=== PATIENT | female | born 1950 | race Caucasian/White ===

== ENCOUNTER 2016-07-07 08:22 | Outpatient (CLI) | payer MEDICARE, BC | END 2016-07-07 08:23 | disposition home or self-care (01) | DX: Z12.31 Encounter for screening mammogram for malignant neoplasm of breast (principal) ==

== ENCOUNTER 2016-07-07 08:23 | Outpatient (CLI) | payer MEDICARE, BC | END 2016-07-07 08:24 | disposition home or self-care (01) | DX: M81.0 Age-related osteoporosis without current pathological fracture (principal) ==

== ENCOUNTER 2017-02-20 09:41 | Outpatient (CLI) | payer MEDICARE, BC ==
[2017-02-20] MEDS ORDERED: IOPAMIDOL-300 50 ML VIAL ONE (10:05)
[2017-02-20] MEDS ORDERED: IOPAMIDOL-300 100 ML VIAL ONE (10:05)
[2017-02-20] MEDS ORDERED: IOPAMIDOL-300 100 ML VIAL IVP ONE (11:15)
[2017-02-20] MEDS ORDERED: IOPAMIDOL-300 50 ML VIAL PO ONE (11:15)
--- NOTE | 2017-02-20 16:17 | CT Report ---
DATE OF SERVICE: 02/20/2017 CT ABDOMEN AND PELVIS WITH CONTRAST: 02/20/2017 CLINICAL INDICATION: Pain, nausea, gas, bloating. TECHNIQUE: Axial CT images of the abdomen and pelvis were obtained with 100 mL Isovue 300 intravenously as well as oral contrast. FINDINGS: Limited evaluation of the lung bases demonstrates atelectasis. ABDOMEN: The liver, spleen, pancreas, kidneys and adrenal glands are unremarkable. The gallbladder is not dilated. No bowel dilatation, free gas, or free fluid is present. No abdominal adenopathy is seen. PELVIS: The appendix is seen in the right lower quadrant, and is normal in caliber. No pelvic adenopathy or free fluid is present. Osseous structures demonstrate degenerative changes. IMPRESSION: NO EVIDENT ETIOLOGY FOR PATIENT'S PAIN AND BLOATING. In accordance with CT protocol optimization, one or more of the following dose reduction techniques were utilized for this exam: automated exposure control, adjustment of mA and/or KV based on patient size, or use of iterative reconstructive technique. TD: 02/20/2017 17:14
== END 2017-02-20 09:42 | disposition home or self-care (01) ==
LOC: DI 09:41
PROVIDERS: ATTEND Physician Assistant
DX: R10.9 Unspecified abdominal pain (principal); R14.0 Abdominal distension (gaseous); R14.3 Flatulence
CPT/HCPCS: 74177; Q9967

== ENCOUNTER 2017-06-15 08:16 | Day surgery (SDC) | payer MEDICARE, BC ==
[~2017-06-15 08:16] MED LIST: BRIMONIDINE 0.2% OPHTH DROPS 5 ML ONE; BSS/LIDOCAINE/EPINEPHRINE 1 ML SYRINGE ONE; TIMOLOL 0.5% OPHTH DROPS ONE
[2017-06-15] MEDS ORDERED: KETOROLAC 0.45% OPHTH DROPS ONE (08:52)
[2017-06-15] MEDS ORDERED: PHENYLEPHRINE 2.5% OPHTH 2 ML DROPS ONE (08:52)
[2017-06-15] MEDS ORDERED: PROPARACAINE 0.5% OPHTH DROPS 15 ML ONE (08:53)
[2017-06-15] MEDS ORDERED: CYCLOPENTOLATE 1% OPHTH DROPS 2 ML ONE (08:53)
[2017-06-15] MEDS ORDERED: LACTATED RINGERS 500 ML IV ONE (09:20)
[2017-06-15] MEDS ORDERED: PHENYLEPHRINE 2.5% OPHTH 2 ML DROPS LEFTEYE ONE (10:05)
[2017-06-15] MEDS ORDERED: CYCLOPENTOLATE 1% OPHTH DROPS 2 ML LEFTEYE ONE (10:05)
[2017-06-15] MEDS ORDERED: PROPARACAINE 0.5% OPHTH DROPS 15 ML LEFTEYE ONE ×2 (10:05→10:48)
[2017-06-15] MEDS ORDERED: KETOROLAC 0.45% OPHTH DROPS LEFTEYE ONE (10:05)
[2017-06-15] MEDS ORDERED: MIDAZOLAM 2 MG/2 ML VIAL IVP ONE (10:34)
[2017-06-15] MEDS ORDERED: TIMOLOL 0.5% OPHTH DROPS OPTH ONE (10:46)
[2017-06-15] MEDS ORDERED: BRIMONIDINE 0.2% OPHTH DROPS 5 ML OPTH ONE (10:46)
[2017-06-15] MEDS ORDERED: EPINEPHrine 1 MG/ML AMP IR ONE (10:46)
[2017-06-15] MEDS ORDERED: CHONDR SULF/HYALURONATE SYRINGE IO ONE (10:46)
[2017-06-15] MEDS ORDERED: BSS/LIDOCAINE/EPINEPHRINE 1 ML SYRINGE IO ONE (10:47)
[2017-06-15] MEDS ORDERED: TRIAMCIN/MOXIFLOX/VANCO 1 ML VIAL IO ONE ×2 (10:47)
--- NOTE | 2017-06-15 11:34 | OPERATIVE REPORT ---
DATE OF SERVICE: 06/15/2017 Physician: Victoriano Law MD PREOPERATIVE DIAGNOSIS: Visually significant cataract, left eye. This was her first cataract surgery. POSTOPERATIVE DIAGNOSIS: Visually significant cataract, left eye. This was her first cataract surgery. PROCEDURE PERFORMED: Phacoemulsification with posterior chamber intraocular lens implant, left eye. SURGEON: Victoriano Law MD ANESTHESIA: Monitored anesthesia care. COMPLICATIONS: None. OPERATIVE INDICATIONS: This is a 66-year-old woman with progressive vision loss in the left eye due to 2+ nuclear sclerotic and 3+ cortical cataract. Best corrected visual acuity was 20/30 with glare to 20/60 in the left eye. Indications for surgery were overall decrease in vision, difficulty seeing words on the computer screen, difficulty reading, difficulty seeing words, closed captions or game scores on TV, difficulty seeing street signs, difficulty driving in low light or at night, difficulty driving at night because of headlights from other vehicles, difficulty with glare or bright lights in any situation, difficulty tracking a golf ball, and decreased acuity with firearms. She was consented at length concerning the risks and benefits of cataract surgery after which she expressed her desire to proceed with surgery. OPERATIVE PROCEDURE: The patient was taken to OR #3 and placed under monitored anesthesia care. A surgical time-out was conducted confirming correct patient, correct procedure and correct surgical site. She was placed under the LenSx laser and her eye docked to the laser interface. The laser performed the capsulotomy, lens softening, phaco wounds and arcuate keratotomy incisions. She was then moved to the operating microscope, given topical anesthesia, and then prepped and draped in the usual sterile fashion. Eye was entered at the 6 and 3 o'clock positions. Intracameral Shugarcaine was injected into the anterior chamber, followed by Viscoat. Capsulorrhexis flap created by the LenSx laser was removed from the anterior chamber. The nucleus was hydrodissected and phacoemulsified. The cortex was evacuated using automated infusion and aspiration. Provisc was injected in the capsular bag and a 19.5 diopter intraocular lens inserted in the bag. Approximately 1 mL mixture of triamcinolone, moxifloxacin and vancomycin was injected subconjunctivally in the superior quadrant for infection and inflammation prophylaxis. I and A was used to evacuate the viscoelastic material. Eye was inflated to physiologic pressure using balanced salt solution and found to be watertight. The patient was taken from the operating room in good condition and given postoperative instructions. TD: 06/15/2017 11:23
[2017-06-15 11:54] VITALS: BP 114/74
== END 2017-06-15 08:17 | disposition home or self-care (01) ==
LOC: SDS 08:16
PROVIDERS: ATTEND Ophthalmology
PROC: 08RK3JZ Replacement of Left Lens with Synthetic Substitute, Percutaneous Approach (ICD-10-PCS; principal; 2017-06-15 09:30)
DX: H25.812 Combined forms of age-related cataract, left eye (principal)
CPT/HCPCS: 66984; A9270; J3490; V2632

== ENCOUNTER 2017-07-11 08:46 | Outpatient (CLI) | payer MEDICARE, BC ==
[2017-07-11] MEDS ORDERED: SINCALIDE 5 MCG VIAL ONE (09:47)
[2017-07-11] MEDS ORDERED: SODIUM CHLORIDE 0.9% IV ONE (11:51)
[2017-07-11] MEDS ORDERED: SINCALIDE IV ONE (11:51)
--- NOTE | 2017-07-11 12:55 | Nuclear Medicine Report ---
EXAM: HEPATOBILIARY SCAN WITH CCK/KINEVAC ADMINISTRATION EXAM DATE: 07/11/2017 11:56 AM. CLINICAL HISTORY: EPIGASTRIC PX, HIGH LIPASE. COMPARISON: None. TECHNIQUE: Following the intravenous administration of 5.2 mCi of Tc99m Mebrofenin, a hepatobiliary s can was done centered on the liver and gallbladder in multiple sequential images and projections. Following the intravenous administration of 1.0 mcg of CCK/ Kinevac over the course of approximately 60 minutes, dynamic imaging was done and the gallbladder ejection fraction was calculated. FINDINGS: Normal extraction of tracer from the blood pool indicating normal hepatocellular function. The liver size and shape is grossly within normal limits. Appearance of tracer in the biliary tree as early as 5 minutes, within normal limits. Appearance of tracer in the gallbladder as early as 10 minutes, within normal limits, with good progr ession of filling throughout the remainder of the initial hour. Appearance of tracer in the small bowel as early as 40 minutes, within normal limits. With CCK administration, the gallbladder demonstrates an effective contraction. The gallbladder eject ion fraction is calculated to be 98%, well above the lower limit of normal of 38% for a 60-minute inj ection. The patient did not report pain after CCK administration. There is evidence of mild enteric reflux into the stomach. No significant collection of tracer remain ing in the common bile duct by the end of the study. IMPRESSION: 1. No scintigraphic evidence of acute cholecystitis. 2. Patent common bile duct. 3. Gallbladder ejection fraction is in the normal range. 4. Mild enterogastric bile reflux. [facility] Referring Provider Line: [phone] SITE ID: [id number]
== END 2017-07-11 08:47 | disposition home or self-care (01) ==
LOC: DI 08:46
PROVIDERS: ATTEND Surgery
DX: R10.13 Epigastric pain (principal); R74.8 Abnormal levels of other serum enzymes
CPT/HCPCS: 78227; J7040

== ENCOUNTER 2017-07-18 10:25 | Outpatient (CLI) | payer MEDICARE, BC ==
--- NOTE | 2017-07-19 13:31 | Mammography Report ---
Procedure Date: 07/18/2017 Accession Number: [id number] / [id number] Procedure: MGS - Screening Mammo Dig Bilat CPT Code: FULL RESULT: EXAM: Screening Mammo Dig Bilat DATE: 07/18/2017 10:42 AM CLINICAL HISTORY: 67-year-old with history of late childbearing for screening COMPARISON: 07/07/2016, 03/20/2014, 07/17/2012, 06/03/2011, 04/15/2010 TECHNIQUE: Bilateral CC, laterally exaggerated CC, MLO views were obtained. FINDINGS: The breasts demonstrate heterogeneously dense fibroglandular parenchyma bilaterally. Punctate, typically benign calcifications are present. No suspicious masses, clustered microcalcifications, or regions of architectural distortion are identified. IMPRESSION: Benign findings RECOMMENDATION: Routine annual screening unless otherwise clinically indicated. BIRADS CATEGORY 2: Benign findings STANDARD QUALIFYING STATEMENTS: 1. This examination was reviewed with the aid of Computer-Aided Detection (CAD). 2. A negative or benign imaging report should not delay biopsy if clinically suspicious findings are present. Consider surgical consultation if warrented. More than 5% of cancers are not identified by imaging. 3. Dense breasts may obscure an underlying neoplasm.
== END 2017-07-18 10:26 | disposition home or self-care (01) ==
LOC: DI.S 10:25
PROVIDERS: ATTEND Physician Assistant
DX: Z12.31 Encounter for screening mammogram for malignant neoplasm of breast (principal)
CPT/HCPCS: 77067

== ENCOUNTER 2017-08-22 08:42 | Day surgery (SDC) | payer MEDICARE, BC ==
[2017-08-22] MEDS ORDERED: LACTATED RINGERS 1,000 ML IV ONE ×3 (09:03→14:14)
[2017-08-22] MEDS ORDERED: ceFAZolin 2 GM/50 ML 2 GM/50 ML BAG IV ONE (09:04)
[2017-08-22] MEDS ORDERED: BUPIVACAINE 0.5% PF 30 ML VIAL ONE (10:35)
[2017-08-22] MEDS ORDERED: MIDAZOLAM 2 MG/2 ML VIAL IVP ONE (11:15)
[2017-08-22] MEDS ORDERED: GLYCOPYRROLATE 1 MG/5 ML VIAL IVP ONE (11:15)
[2017-08-22] MEDS ORDERED: KETOROLAC 30 MG/ML VIAL IVP ONE (11:15)
[2017-08-22] MEDS ORDERED: ePHEDrine 50 MG/ML VIAL IVP ONE (11:15)
[2017-08-22] MEDS ORDERED: ONDANSETRON 4 MG/2 ML VIAL IVP ONE (11:15)
[2017-08-22] MEDS ORDERED: fentaNYL 250 MCG/5 ML VIAL IVP ONE (11:15)
[2017-08-22] MEDS ORDERED: NEOSTIGMINE 1 MG/1 ML 10 ML MDV IVP ONE (11:15)
[2017-08-22] MEDS ORDERED: DEXAMETHASONE 4 MG/ML VIAL IVP ONE (11:15)
[2017-08-22] MEDS ORDERED: PROPOFOL 200 MG/20 ML VIAL IVP ONE (11:15)
[2017-08-22] MEDS ORDERED: ROCURONIUM 50 MG/5 ML VIAL IVP ONE (11:15)
[2017-08-22] MEDS ORDERED: BUPIVACAINE 0.5% PF 30 ML VIAL INFIL ONE ×2 (11:16)
--- NOTE | 2017-08-22 12:33 | OPERATIVE REPORT ---
Operative Report - General Procedure Date: 08/22/17 Planned Procedure: Laparoscopic cholecystectomy, possible open cholecystectomy, possible intra Pre-Op Diagnosis: Biliary dyskinesia Procedure Performed: Laparoscopic cholecystectomy and umbilical herniorrhaphy Post Op Diagnosis: Biliary dyskinesia and umbilical hernia - Procedure Note Primary Surgeon: Parvez Tyson MD Anesthesia Provider: Dayanna Grove CRNA Anesthesia Technique: General ET tube, Local (30 mL of half percent Marcaine) IV Fluids (mL): 1,200 Estimated Blood Loss (mL): 10 Complications: None. - Other Other Information/Narrative: OPERATIVE DESCRIPTION/REPORT: After verbal and written informed consent was obtained detailing the risks of infection, bleeding with all of its risks including transfusion, common bile duct injury, and the patient was brought to the operative suite and placed in the supine position on the operating room table. Monitoring devices were applied along with TEDs and pneumatic compressive stockings. Care was taken to avoid pressure points. Prophylactic antibiotics were given. An adequate level of general endotracheal anesthesia was established by Ancelmo Grove CRNA. The abdomen was then prepped with ChloraPrep and draped in a sterile fashion. A "time in" then confirmed that the patient was identified with 3 identifiers (name, date and medical record number), the history and physical was in the chart, the signed consent confirming the procedure was in the chart, the patient was in the correct position, the aforementioned prophylactic measures were in place or given, we had the correct personnel and equipment to complete the procedure and that anesthesia, surgery and nursing were given an opportunity to express any concerns. The initial incision was at the umbilicus and dissection to the linea alba was completed using blunt dissection. A small umbilical hernia was noted and this was used to get into the abdomen. The hernia itself was widened just slightly with a scalpel in order to place the port. In this location, a 12 mm blunt tipped, balloon tipped port was placed and the balloon was inflated to keep the port in position. The abdominal cavity was insufflated with carbon dioxide to steady-state pressure of 15 mmHg. Three additional 5 mm ports were placed in standard location for laparoscopic cholecystectomy (subxiphoid and 2 right subcostal) under direct vision of the 30 degree laparoscope and without incident. The patient was then placed in reverse Trendelenburg position and was rotated slightly to their left. The gallbladder fundus was grasped with an atraumatic grasper. Multiple adhesions had to be taken down by blunt and sharp dissection along with electrocautery. Eventually, we identified the infundibulum, and this was then grasped and retracted inferior and laterally. Dissection was then begun in the angle of Calot. The cystic duct and (slightly medially and posteriorly) cystic artery were clearly identified. The critical view was obtained. Two clips proximally and one clip distally were used to control both the cystic duct and cystic artery. The clips were carefully placed to avoid occluding the juncture with the common bile duct. Both the cystic duct and then the cystic artery were then transected with laparoscopic ankush. The gallbladder was then removed from its fossa in a retrograde fashion using electrocautery. With the 30 degree 5 mm scope in the subxiphoid position, the gallbladder was placed in an EndoCatch bag to be extracted through the 12 mm port site. I irrigated the right upper quadrant with a liter of warm sterile saline, and the area was aspirated dry. I inspected the gallbladder fossa and there was no bleeding or bile leak. Clips on the cystic duct and cystic artery appeared to be secure. I briefly visually explored the abdomen. There was no other evidence of overt pathology. I injected the port sites at the peritoneal, fascial, and skin levels under direct vision with 0.5% Marcaine. All ports and the EndoCatch containing the gallbladder were removed. Following gallbladder removal, the remaining carbon dioxide was expelled from the abdomen. The fascia at the umbilicus was reapproximated using 2 [id number] 0 Vicryl sutures thus repairing the umbilical hernia. The skin at each port site was approximated using a subcuticular 4-0 Monocryl. The surgical count of instruments, needles and sponges was reported as correct twice. Mastisol, Steri -Strips and sterile surgical dressings were applied. The patient was then awakened from anesthesia, extubated, and having tolerated the procedure well, was transported to the recovery room. No complications were encountered. A "time out" confirmed the operation performed, the fluids given, the estimated blood loss and anesthesia, surgery and nursing were given an opportunity to express any concerns.
[2017-08-22] MEDS ORDERED: ONDANSETRON 4 MG/2 ML VIAL ONE ×2 (12:45→13:59)
[2017-08-22] MEDS: fentaNYL 100 MCG/2 ML VIAL ONE ×2 (12:45→13:04)
[2017-08-22] MEDS ORDERED: ACETAMINOPHEN 1,000 MG/100 ML 100 ML IV ONE (13:59)
[2017-08-22] MEDS ORDERED: HYDROmorphone 0.5 MG/0.5 ML SYRINGE ONE (14:16)
[2017-08-22] MEDS ORDERED: oxyCOD/ACETAMIN 5 MG/325 MG TABLET PO ONE (14:49)
[2017-08-22 16:02] VITALS: BP 116/73
== END 2017-08-22 08:43 | disposition home or self-care (01) ==
LOC: SDS 08:42
PROVIDERS: ATTEND Surgery
PROC: 0FT44ZZ Resection of Gallbladder, Percutaneous Endoscopic Approach (ICD-10-PCS; principal; 2017-08-22 10:00)
DX: K81.1 Chronic cholecystitis (principal); K82.8 Other specified diseases of gallbladder; K42.9 Umbilical hernia without obstruction or gangrene; F17.210 Nicotine dependence, cigarettes, uncomplicated
CPT/HCPCS: 47562; A9270; J0131; J0690; J1170; J3010; J7120

== ENCOUNTER 2017-11-02 16:32 | Emergency (ER) | payer MEDICARE, BC ==
--- NOTE | 2017-11-02 17:57 | XRAY Report ---
Reason: Trauma Procedure Date: 11/02/2017 Accession Number: [id number] / [id number] Procedure: XR - Forearm RT CPT Code: FULL RESULT: EXAM: RIGHT FOREARM RADIOGRAPHY EXAM DATE: 11/02/2017 05:25 PM. CLINICAL HISTORY: Trauma.Dog bites at proximal forearm to hand. COMPARISON: None. TECHNIQUE: 2 views. FINDINGS: Bones: Normal. No fractures or bone lesions. Joints: Normal. No effusions or subluxations in the visualized wrist or elbow joints. Soft Tissues: Small proximal dorsal forearm soft tissue gas consistent with laceration. No radiopaque foreign body seen. No evidence for acute fracture. IMPRESSION: Small proximal dorsal forearm soft tissue gas consistent with laceration. No radiopaque foreign body seen. No evidence for acute fracture. [facility]
--- NOTE | 2017-11-02 17:59 | XRAY Report ---
Reason: Trauma Procedure Date: 11/02/2017 Accession Number: [id number] / [id number] Procedure: XR - Hand 3 View RT CPT Code: FULL RESULT: EXAM: RIGHT WRIST RADIOGRAPHY 4 VIEWS RIGHT HAND RADIOGRAPHY 5 VIEWS EXAM DATE: 11/02/2017 05:25 PM. CLINICAL HISTORY: Trauma.Dog bites to hand. COMPARISON: None.. FINDINGS: Bones: Normal. No fractures or bone lesions. Joints: Normal. No subluxations. Soft Tissues: Normal. No soft tissue swelling. IMPRESSION: Normal. [facility]
--- NOTE | 2017-11-02 17:59 | XRAY Report ---
Reason: Trauma Procedure Date: 11/02/2017 Accession Number: [id number] / [id number] Procedure: XR - Wrist 4 View RT CPT Code: FULL RESULT: EXAM: RIGHT WRIST RADIOGRAPHY 4 VIEWS RIGHT HAND RADIOGRAPHY 5 VIEWS EXAM DATE: 11/02/2017 05:25 PM. CLINICAL HISTORY: Trauma.Dog bites to hand. COMPARISON: None.. FINDINGS: Bones: Normal. No fractures or bone lesions. Joints: Normal. No subluxations. Soft Tissues: Normal. No soft tissue swelling. IMPRESSION: Normal. [facility]
[2017-11-02] MEDS ORDERED: AMOX/CLAV 875 MG/125 MG TABLET PO STA (18:06)
--- NOTE | 2017-11-02 18:09 | ED Physician Documentation ---
PD HPI UPPER EXT INJURY - Stated complaint Stated Complaint: DOGBITE/R ARM/HAND - Chief complaint Chief Complaint: Wound - History obtained from History obtained from: Patient - History of Present Illness Location: Right (She was bitten by her own fully immunized dog at home just prior to arrival. She is not up-to-date on tetanus. She has moderate pain in the right forearm and hand but declines pain medication.) Review of Systems Constitutional: reports: Reviewed and negative Cardiac: reports: Reviewed and negative Respiratory: reports: Reviewed and negative PD PAST MEDICAL HISTORY - Past Medical History Cardiovascular: None Respiratory: None Endocrine/Autoimmune: None GI: Cholelithiasis : None HEENT: None Psych: None Musculoskeletal: Osteoarthritis Derm: None - Past Surgical History Past Surgical History: Yes General: Colonoscopy, EGD /RETAIL LOSS PREVENTION SPECIALIST: Hysterectomy - Present Medications Home Medications: Ambulatory Orders Medication Instructions Recorded Confirmed Aspirin/Acetaminophen/Caffeine 1 each PO PRN PRN 06/15/17 08/22/17 [Excedrin Migraine Caplet] L. Acidophilus/L. Rhamnosus 1 each PO DAILY 06/15/17 08/22/17 [Probiotic 15 Billion Cell Cap] Amox/Clav 875/125 [Augmentin 1 tab PO BID 10 Days #14 tablet 11/02/17 875/125] L.acidoph/L.rhamn/B.bif/B.long 11/02/17 [Probiotic Acidophilus Biobeads] - Allergies Allergies/Adverse Reactions: Allergies Allergy/AdvReac Type Severity Reaction Status Date / Time No Known Drug Allergies Allergy Verified 11/02/17 16:51 - Social History Does the pt smoke?: Yes Smoking Status: Current every day smoker Does the pt drink ETOH?: Yes Does the pt have substance abuse?: No PD ED PE NORMAL - Vitals Vital signs reviewed: Yes - General General: Alert and oriented X 3, No acute distress - Derm Derm: Normal color, Warm and dry - Neuro Neuro: Alert and oriented X 3, Normal speech - Psych Psych: Normal mood, Normal affect PD ED PE EXPANDED - Extremities ALFONZO UE/Hands Visual: 1 - laceration (Puncture) 2 - laceration (Puncture) 3 - laceration (2 punctures) 4 - tenderness (Normal neurovascular function at the tips of the fingers with good cap refill and movement although has some pain with extension of the wrist.) Results - Vitals Vitals: Vital Signs - 24 hr 11/02/17 16:45 Temperature 37.1 C Heart Rate 84 Respiratory 16 Rate Blood Pressure 137/91 H O2 Saturation 97 Oxygen O2 Source Room air - Rads (name of study) R forearm/wrist/Hand Radiology: EMP read contemporaneously (Soft tissue gas consistent with laceration, no bony injury or radial opaque foreign body.) PD MEDICAL DECISION MAKING - Sepsis Event Vital Signs: Vital Signs - 24 hr 11/02/17 16:45 Temperature 37.1 C Heart Rate 84 Respiratory 16 Rate Blood Pressure 137/91 H O2 Saturation 97 Oxygen O2 Source Room air Departure - Departure Disposition: 01 Home, Self Care Clinical Impression: Animal bite with open wound Condition: Good Record reviewed to determine appropriate education?: Yes Instructions: Bites Scratches Animal Prescriptions: Amox/Clav 875/125 [Augmentin 875/125] 1 tab PO BID 10 Days #14 tablet Comments: Your blood pressure was elevated today on check into the emergency department. This does not mean that you have hypertension, it is a common phenomenon to come to the emergency department and have elevated blood pressure. I recommend that you see your primary care physician within the week to have it rechecked when you are feeling better.
[2017-11-02] MEDS ORDERED: TETANUS/DIPHTHERIA/PERTUSSIS 0.5 ML SYRINGE IM ONE (18:11)
[2017-11-02 18:22] VITALS: BP 134/88
== END 2017-11-02 18:17 | disposition home or self-care (01) ==
LOC: ED 16:32
DX: S51.851A Open bite of right forearm, initial encounter (principal); S61.451A Open bite of right hand, initial encounter; S61.259A Open bite of unspecified finger without damage to nail, initial encounter; R03.0 Elevated blood-pressure reading, without diagnosis of hypertension; F17.200 Nicotine dependence, unspecified, uncomplicated; Z79.82 Long term (current) use of aspirin; W54.0XXA Bitten by dog, initial encounter; Y92.009 Unspecified place in unspecified non-institutional (private) residence as the place of occurrence of the external cause
CPT/HCPCS: 73090; 73110; 73130; 90471; 90715; 99283; A9270

== ENCOUNTER 2017-11-16 06:05 | Day surgery (SDC) | payer MEDICARE, BC ==
[2017-11-16] MEDS ORDERED: CYCLOPENTOLATE 1% OPHTH DROPS 2 ML ONE (06:19)
[2017-11-16] MEDS ORDERED: PHENYLEPHRINE 2.5% OPHTH 2 ML DROPS ONE (06:19)
[2017-11-16] MEDS ORDERED: PROPARACAINE 0.5% OPHTH DROPS 15 ML ONE (06:19)
[2017-11-16] MEDS ORDERED: KETOROLAC 0.45% OPHTH DROPS ONE (06:19)
[2017-11-16] MEDS ORDERED: PHENYLEPHRINE 2.5% OPHTH 2 ML DROPS RIGHTEYE ONE (06:38)
[2017-11-16] MEDS ORDERED: PROPARACAINE 0.5% OPHTH DROPS 15 ML RIGHTEYE ONE (06:38)
[2017-11-16] MEDS ORDERED: KETOROLAC 0.45% OPHTH DROPS RIGHTEYE ONE (06:38)
[2017-11-16] MEDS ORDERED: CYCLOPENTOLATE 1% OPHTH DROPS 2 ML RIGHTEYE ONE (06:38)
[2017-11-16] MEDS ORDERED: LACTATED RINGERS 500 ML IV ONE (06:43)
[2017-11-16] MEDS ORDERED: EPINEPHrine 1 MG/ML AMP ONE (06:52)
[2017-11-16] MEDS ORDERED: BSS/LIDOCAINE/EPINEPHRINE 1 ML SYRINGE ONE (06:53)
[2017-11-16] MEDS ORDERED: VANCOMYCIN OPHTHALMI 8MG/0.8ML 8 MG/0.8 ML SYRINGE IO ONE (06:53)
[2017-11-16] MEDS ORDERED: TRIAMCIN/MOXIFLOX OPHTHALMIC 0.6 ML VIAL IO ONE ×2 (06:53→07:42)
[2017-11-16] MEDS ORDERED: TIMOLOL 0.5% OPHTH DROPS ONE (06:53)
[2017-11-16] MEDS ORDERED: BRIMONIDINE 0.2% OPHTH DROPS 5 ML ONE (06:53)
--- NOTE | 2017-11-16 07:12 | ANESTHESIA ---
Pre-Anesthesia VS, & Labs - Diagnosis Right nuclear sclerotic cataract - Procedure Right laser assisted phaco with IOL implant Vital Signs: Temp Pulse Resp BP Pulse Ox 36.7 C 78 16 135/84 H 97 11/16/17 06:34 11/16/17 06:34 11/16/17 06:34 11/16/17 06:34 11/16/17 06:34 Height 5 ft 4 in Weight (kg) 53 kg Body Mass Index 19.5 - NPO >8 hours - Is Patient ?: Not Applicable Home Medications and Allergies Home Medications: Ambulatory Orders Amoxicillin 1 DAILY 11/16/17 Aspirin/Acetaminophen/Caffeine [Excedrin Migraine Caplet] 1 PRN 11/16/17 Ibuprofen [Advil] 1 PRN 11/16/17 Amoxicillin 1 DAILY 11/16/17 Aspirin/Acetaminophen/Caffeine [Excedrin Migraine Caplet] 1 PRN 11/16/17 Ibuprofen [Advil] 1 PRN 11/16/17 Allergies/Adverse Reactions: Allergies Allergy/AdvReac Type Severity Reaction Status Date / Time bee venom protein (honey bee) Allergy Anaphylaxis Verified 11/16/17 06:45 Anes History & Medical History - Anesthetic History Anesthesia Complications: reports: No previous complications Family history of Anesthesia Complications: Denies Family history of Malignant Hyperthermia: Denies - Medical History Cardiovascular: reports: None Pulmonary: reports: None Gastrointestinal: reports: Cholelithiasis Urinary: reports: None Neuro: reports: None Musculoskeletal: reports: Osteoarthritis Endocrine/Autoimmune: reports: None Blood Disorders: reports: None Skin: reports: None Smoking Status: Current every day smoker Psychosocial: reports: No issues indicated - Surgical History General: Colonoscopy, EGD Eyes Ears Nose Throat (EENT): Cataracts Gynecologic: Hysterectomy Exam General: Alert Dental: WNL Mouth Opening: Greater than 4 Fingerbreadths Neck Mobility: Normal Mallampati classification: I Thyromental Distance: greater than 6 cm Cardiovascular: Regular rate Neurological: Normal gait Mental/Cognitive Status: Alert/Oriented X3 Cognitive Status: Within normal limits Plan Anesthesia Type: MAC Consent for Procedure(s) Verified and Reviewed: Yes Code Status: Attempt Resuscitation ASA classification: 2-Mild systemic disease Is this case an emergency?: No
[2017-11-16] MEDS ORDERED: MIDAZOLAM 2 MG/2 ML VIAL IVP ONE (07:30)
[2017-11-16] MEDS ORDERED: EPINEPHrine 1 MG/ML AMP IVP ONE (07:40)
[2017-11-16] MEDS ORDERED: BRIMONIDINE 0.2% OPHTH DROPS 5 ML OPTH ONE (07:40)
[2017-11-16] MEDS ORDERED: BSS/LIDOCAINE/EPINEPHRINE 1 ML SYRINGE IO ONE (07:41)
[2017-11-16] MEDS ORDERED: CHONDR SULF/HYALURONATE SYRINGE IO ONE (07:41)
[2017-11-16] MEDS ORDERED: TIMOLOL 0.5% OPHTH DROPS OPTH ONE (07:41)
[2017-11-16 08:26] VITALS: BP 120/75
--- NOTE | 2017-11-16 09:06 | OPERATIVE REPORT ---
DATE OF SERVICE: 11/16/2017 Physician: Victoriano Law MD PREOPERATIVE DIAGNOSIS: Visually significant cataract, right eye. Cataract surgery was performed on the left eye on 06/15/2017. POSTOPERATIVE DIAGNOSIS: Visually significant cataract, right eye. Cataract surgery was performed on the left eye on 06/15/2017. NAME OF PROCEDURE: Phacoemulsification with posterior chamber intraocular lens implant right eye, with laser assist. SURGEON: Victoriano Law M.D. ANESTHESIA: Monitored anesthesia care. COMPLICATIONS: None. OPERATIVE INDICATIONS: This is a 67-year-old woman with progressive vision loss in the right eye due to 2+ nuclear sclerotic and 2-3+ cortical cataract. Best corrected visual acuity was 20/30 with glare to 20/60 in the right eye. Indications for surgery are overall decrease in vision, difficulty seeing words on a computer screen, difficulty reading; difficulty seeing words, closed caption or game scores on TV; difficulty seeing street signs, difficulty driving in low light or at night, difficulty driving at night because of headlights from other vehicles and/or street lights, difficulty with glare or bright lights in any situation, and decreased acuity with firearms. She was consented at length concerning risks and benefits of cataract surgery, after which she expressed a desire to proceed with surgery. OPERATIVE PROCEDURE: Patient was taken into OR #3 and placed under monitored anesthesia care. A surgical timeout was conducted confirming correct patient, correct procedure, and correct surgical site. She was placed under the LenSx laser, and her eye was docked to the laser interface. The laser performed the capsulotomy, lens softening, phaco wounds and arcuate keratotomy incisions. She was then moved to the operating microscope, given topical anesthesia, and prepped and draped in the usual sterile fashion. The eye was entered at the 12 and 9 o'clock positions. Intracameral Shugarcaine was injected into the anterior chamber, followed by Viscoat. A capsulorrhexis flap created by the LenSx laser was removed from the anterior chamber. The nucleus was hydrodissected and phacoemulsified. The cortex was evacuated using automated infusion and aspiration. Provisc was injected in the capsular bag, and a 20.0 diopter intraocular lens inserted in the bag. Approximately 0.8 mL of a mixture of triamcinolone, moxifloxacin and vancomycin was injected subconjunctivally in the superior quadrant for infection and inflammation prophylaxis. I and A was used to evacuate the viscoelastic materials. The eye was inflated to physiologic pressure using balanced salt solution and found to be watertight. Patient was taken from the operating room in good condition and given postoperative instructions. TD: 11/16/2017 08:14 [id number]
== END 2017-11-16 06:06 | disposition home or self-care (01) ==
LOC: SDS 06:05
PROVIDERS: ATTEND Ophthalmology
PROC: 08RJ3JZ Replacement of Right Lens with Synthetic Substitute, Percutaneous Approach (ICD-10-PCS; principal; 2017-11-16 07:30)
DX: H25.811 Combined forms of age-related cataract, right eye (principal); F17.210 Nicotine dependence, cigarettes, uncomplicated
CPT/HCPCS: 66984; A9270; J3490; V2632

== ENCOUNTER 2018-03-31 11:16 | Emergency (ER) | payer MEDICARE, BC ==
[2018-03-31 11:29] VITALS: BP 117/75
--- NOTE | 2018-03-31 12:08 | ED Physician Documentation ---
PD HPI UPPER EXT INJURY - Stated complaint Stated Complaint: LF LOWER ARM INJ - Chief complaint Chief Complaint: General - History obtained from History obtained from: Patient - History of Present Illness Location: Left, Wrist, Hand Type of injury: Fall Where injury occurred: Home Timing - onset: Yesterday (she slid on icy spot and fell into fence while carrying bowls of animal food. She says she braced the fall with left hand and bruised it well. Pain with swelling of left hand and wrist yesterday and it has stayed hurting a lot with bruising showing up today.) Timing - details: Abrupt onset Worsened by: Moving, Palpating Associated symptoms: Swelling, Discolored (bruising). No: Weakness, Numbness Similar symptoms before: Has not had sx before Recently seen: Not recently seen Review of Systems Constitutional: denies: Fever, Chills Nose: denies: Rhinorrhea / runny nose, Congestion Throat: denies: Sore throat Cardiac: denies: Chest pain / pressure Respiratory: denies: Cough GI: denies: Abdominal Pain Neurologic: denies: Focal weakness, Numbness, Altered mental status, Head injury, LOC PD PAST MEDICAL HISTORY - Past Medical History Cardiovascular: None Respiratory: None Neuro: None Endocrine/Autoimmune: None GI: Cholelithiasis : None HEENT: None Psych: None Musculoskeletal: Osteoarthritis Derm: None - Past Surgical History Past Surgical History: Yes General: Colonoscopy, EGD /[employer]: Hysterectomy - Present Medications Home Medications: Ambulatory Orders Medication Instructions Recorded Confirmed Ibuprofen [Advil] 1 PRN 11/16/17 - Allergies Allergies/Adverse Reactions: Allergies Allergy/AdvReac Type Severity Reaction Status Date / Time bee venom protein (honey bee) Allergy Anaphylaxis Verified 03/31/18 11:28 - Social History Does the pt smoke?: Yes Smoking Status: Current every day smoker Does the pt drink ETOH?: Yes Does the pt have substance abuse?: No - Immunizations Immunizations are current?: Yes PD ED PE NORMAL - Vitals Vital signs reviewed: Yes - General General: Alert and oriented X 3, No acute distress, Well developed/nourished - Derm Derm: Normal color, Warm and dry - Extremities Extremities: Other (left hand dorsum with small abrasion/superficial lac without FB. The palmar aspect of left wrist and hand with swelling and bruising showing. No open wounds on palmar aspect. ) - Neuro Neuro: Alert and oriented X 3, No motor deficit, No sensory deficit, Normal speech Results - Vitals Vitals: Vital Signs - 24 hr 03/31/18 11:25 Temperature 36.7 C Heart Rate 80 Respiratory 15 Rate Blood Pressure 117/75 O2 Saturation 99 Oxygen O2 Source Room air - Rads (name of study) left wrist and hand Radiology: Prelim report reviewed, Discussed with rads (findings of hypoden sities palmar aspect of hand differential of fat globules vs gas, to correlate clinically if wound in the area. ) PD MEDICAL DECISION MAKING - ED course Complexity details: considered differential (bruising of palm and wrist, with small abrasion dorsum of hand. No palmar wound seem. Xray finding without fracture and Rad reading of fat globules vs air would be c/w fat. ), d/w patient Departure - Departure Disposition: 01 Home, Self Care Clinical Impression: Fall due to ice or snow Qualifiers: Encounter type: initial encounter Qualified Code(s): W00.9XXA - Unspecified fall due to ice and snow, initial encounter Hand contusion Qualifiers: Encounter type: initial encounter Laterality: left Qualified Code(s): S60.222A - Contusion of left hand, initial encounter Left wrist sprain Qualifiers: Encounter type: initial encounter Qualified Code(s): S63.502A - Unspecified sprain of left wrist, initial encounter Condition: Stable Record reviewed to determine appropriate education?: Yes Instructions: ED Sprain Hand, ED Sprain Wrist Follow-Up: Vanna Prakash PA [Primary Care Provider] - Comments: No fractures on xray (by my reading and the Radiologist). Swelling evident on xray. Use splint to help with less motion of the wrist and hand. Elevate the hand often and provide ice and rest. Continue the ibuprofen every 6-8 hours. Add Tylenol if needed for pains. This should taper down and swelling over the next several days but likely be sore for a week or 2. Recheck if not improving over the next couple of days. Return sooner if worsening or progressive redness or any concern of infection appearance. Discharge Date/Time: 03/31/18 12:45
--- NOTE | 2018-03-31 12:22 | XRAY Report ---
Reason: Trauma Procedure Date: 03/31/2018 Accession Number: [id number] / [id number] Procedure: XR - Wrist 4 View LT CPT Code: FULL RESULT: EXAM: LEFT WRIST RADIOGRAPHY EXAM DATE: 03/31/2018 11:51 AM. CLINICAL HISTORY: Trauma. COMPARISON: HAND 3 VIEW RT 11/02/2017 5:25 PM. TECHNIQUE: 3 views. FINDINGS: Bones: Normal. No fractures or bone lesions. Joints: Normal. No subluxations. Soft Tissues: Mild wrist and hand soft tissue swelling. There is partial demonstration of patchy, mottled lucency within the soft tissues between the plane of the first and second and less so the second and third metacarpals. This could represent soft tissue gas such as can be seen in the setting of laceration or infection. Clinical correlation is recommended. No radiopaque foreign bodies. IMPRESSION: 1. No osseous abnormality. 2. Hand and wrist soft tissue swelling. 3. Mottled lucency within the lateral hand soft tissues could represent gas such as can be seen in the setting of soft tissue laceration/injury or infection. Clinical correlation is recommended. BING The call report notification system was initiated by Dr. Reji Bassett at 12:20 PM on 03/31/2018. ADDENDUM: 03/31/18 12:25 The above call report findings were discussed with Dr. Valencia by Dr. Reji Bassett at 12:25 PM on 03/31/2018.
--- NOTE | 2018-03-31 12:22 | XRAY Report ---
Reason: Trauma Procedure Date: 03/31/2018 Accession Number: [id number] / [id number] Procedure: XR - Hand 3 View LT CPT Code: FULL RESULT: EXAM: LEFT HAND RADIOGRAPHY EXAM DATE: 03/31/2018 11:52 AM. CLINICAL HISTORY: Trauma. Fell last night. Bruised, difficult to move. COMPARISON: HAND 3 VIEW RT 11/02/2017 5:25 PM WRIST 4 VIEW LT 03/31/2018 11:42 AM. TECHNIQUE: 3 views. FINDINGS: Bones: Normal. No fractures or bone lesions. Joints: Normal. No subluxations. Soft Tissues: Hand and wrist soft tissue swelling. There is patchy, mottled lucency within the soft tissues between the plane of the first and second and the second and third metacarpals, appearing to project to the palmar soft tissues. This could represent soft tissue gas such as can be seen in the setting of laceration or infection. Clinical correlation is recommended. No radiopaque foreign bodies. IMPRESSION: 1. No osseous abnormality. 2. Hand and wrist soft tissue swelling. 3. Mottled lucency within the lateral, palmar soft tissues could represent gas such as can be seen in the setting of soft tissue laceration/injury or infection. Clinical correlation is recommended. BING The call report notification system was initiated by Dr. Reji Bassett at 12:14 PM on 03/31/2018. ADDENDUM: 03/31/18 12:24 The above call report findings were discussed with Dr. Valencia by Dr. Reji Bassett at 12:24 PM on 03/31/2018.
[2018-03-31] MEDS: ACETAMINOPHEN 325 MG TABLET PO STA (12:44)
== END 2018-03-31 12:45 | disposition home or self-care (01) ==
LOC: ED 11:16
DX: S60.222A Contusion of left hand, initial encounter (principal); S63.502A Unspecified sprain of left wrist, initial encounter; S60.512A Abrasion of left hand, initial encounter; W00.0XXA Fall on same level due to ice and snow, initial encounter; Y92.009 Unspecified place in unspecified non-institutional (private) residence as the place of occurrence of the external cause; F17.200 Nicotine dependence, unspecified, uncomplicated
CPT/HCPCS: 99282

== ENCOUNTER 2019-01-16 10:55 | Outpatient (CLI) | payer MEDICARE, BC ==
[2019-01-16] MEDS ORDERED: IOVERSOL 320 50 ML VIAL ONE (11:13)
[2019-01-16] MEDS ORDERED: IOVERSOL 320 100 ML VIAL IVP ONE ×2 (11:13→14:22)
[2019-01-16 11:37] LABS: CREATININE 0.8 mg/dL (0.4-1.0)
[2019-01-16] MEDS ORDERED: IOVERSOL 320 50 ML VIAL PO ONE (14:21)
--- NOTE | 2019-01-16 15:58 | CT Report ---
Reason: RLQ PAIN Procedure Date: 01/16/2019 Accession Number: [id number] / [id number] Procedure: CT - Abdomen/Pelvis W CPT Code: Final Report FULL RESULT: EXAM: CT ABDOMEN AND PELVIS WITH IV CONTRAST EXAM DATE: 01/16/2019 12:40 PM. CLINICAL HISTORY: Right lower quadrant pain. COMPARISONS: 08/07/2018. TECHNIQUE: Routine helical CT imaging was performed through the abdomen and pelvis. IV contrast: Optiray 320, 90 mL. Enteric contrast: Yes. Reconstructions: Coronal and sagittal. In accordance with CT protocol optimization, one or more of the following dose reduction techniques were utilized for this exam: automated exposure control, adjustment of mA and/or KV based on patient size, or use of iterative reconstructive technique. FINDINGS: Lung Bases: Unremarkable. Liver: Hepatic hypodensities are too small to characterize. Mild hepatomegaly. Gallbladder/Bile Ducts: Status post cholecystectomy. Spleen: Normal. Pancreas: Normal. Adrenal Glands: Normal. Kidneys: Normal. No masses or hydronephrosis. Peritoneal Cavity/Bowel: No bowel obstruction. No free fluid or free air. No lymphadenopathy by size criteria. The appendix is not confidently visualized. What is felt to represent visualized portions of the appendix is seen coronally on image 12 series 5 and axial image 42 series 3 and appears normal in caliber. There is no inflammation surrounding the cecum. Pelvic Organs: The urinary bladder is markedly distended. The patient is status post hysterectomy. Vasculature: No aneurysms or other significant abnormality. Bones: Levoconvex lumbar scoliosis. No aggressive osseous lesions. Other: None. IMPRESSION: The etiology of the patient's right lower quadrant pain is not confidently identified. Distended urinary bladder. RADIA
== END 2019-01-16 10:56 | disposition home or self-care (01) ==
LOC: DI 10:55
PROVIDERS: ATTEND Surgery
DX: R10.31 Right lower quadrant pain (principal)
CPT/HCPCS: 36415; 74177; 82565; Q9967

== ENCOUNTER → 2019-03-16 | Outpatient (CLI) | payer MEDICARE, BC | LOC: LAB 10:15 | PROVIDERS: ATTEND Emergency Medicine | DX: R19.7 Diarrhea, unspecified (principal) | CPT/HCPCS: 87045; 87046 ==

== ENCOUNTER 2019-03-19 08:30 | Outpatient (CLI) | payer MEDICARE, BC | END 2019-03-19 23:59 | disposition home or self-care (01) | LOC: LAB.R 08:30 | PROVIDERS: ATTEND Emergency Medicine | DX: R19.7 Diarrhea, unspecified (principal) | CPT/HCPCS: 87493 ==

== ENCOUNTER 2019-07-10 11:42 | Outpatient (CLI) | payer MEDICARE, BC ==
--- NOTE | 2019-07-10 16:55 | CT Report ---
Reason: SOLITARY PULMONARY NODULE Procedure Date: 07/10/2019 Accession Number: [id number] / [id number] Procedure: CT - CHEST WO CPT Code: Final Report FULL RESULT: PROCEDURE: CHEST WO INDICATIONS: SOLITARY PULMONARY NODULE TECHNIQUE: Noncontrast 5 mm thick sections acquired from the pulmonary apices to the posterior costophrenic angles. 7 mm thick coronal and sagittal MIP reformats were then acquired. For radiation dose reduction, the following was used: automated exposure control, adjustment of mA and/or kV according to patient size. COMPARISON: 01/27/2016 FINDINGS: Image quality: Excellent. Lungs and pleura: There are numerous scattered small thin-walled cysts in both lungs, mainly in the upper lobes, but seen also in the superior portions of the lower lobes bilaterally. No significant paraseptal emphysematous changes. No suspicious pulmonary nodules or masses. No peribronchial thickening, fibrosis or bronchiectasis. No acute air space opacities. No pleural effusions or pneumothorax. Central and peripheral airways are patent and normal in caliber. Mediastinum: Heart size is normal. No pericardial effusion. No mediastinal adenopathy by size criteria. Thoracic aorta and central pulmonary arteries are normal in size. Esophagus is normal in caliber. No hiatal hernia. Bones and chest wall: No suspicious bony lesions. No vertebral body compression fractures. No axillary or supraclavicular adenopathy by size criteria. The thyroid is normal in size. Abdomen: Visualized upper abdominal solid organs and bowel loops appear normal in the absence of contrast. IMPRESSION: 1. No suspicious pulmonary nodule. 2. Mild cystic changes in each lung, not classic emphysematous changes, but more suggestive of respiratory bronchiolitis, smoking-related. Findings are minimally progressed compared to the prior study Reviewed by: Jeannette Junior MD on 07/10/2019 4:54 PM PDT Approved by: Jeannette Junior MD on 07/10/2019 4:54 PM PDT Station ID: [id number]
== END 2019-07-10 11:43 | disposition home or self-care (01) ==
LOC: DI 11:42
PROVIDERS: ATTEND Physician Assistant
DX: J98.4 Other disorders of lung (principal)
CPT/HCPCS: 71250

== ENCOUNTER 2020-02-26 09:52 | Outpatient (CLI) | payer MEDICARE, BC ==
--- NOTE | 2020-02-26 16:33 | Nuclear Medicine Report ---
PROCEDURE: Hepatobiliary HIDA w/o Rx INDICATIONS: RUQ ABDOMINAL PAIN RADIOPHARMACEUTICAL: 5.6 mCi Tc-99m meprofenin i.v TECHNIQUE: Following intravenous administration of Tc-99m meprofenin, sequential anterior abdominal images were obtained through 55 minutes. COMPARISON: None. FINDINGS: Biliary scan: There is normal tracer uptake and excretion by the liver. There is normal visualizati on of the intrahepatic ducts, common bile duct. The gallbladder has been removed. There is no pooling of tracer within the gallbladder fossa. There is normal tracer transit into the duodenum. IMPRESSION: 1. Normal biliary imaging study. It is noted the gallbladder has been removed. Reviewed by: Catalina Rodriguez MD on 02/26/2020 4:32 PM PST Approved by: Catalina Rodriguez MD on 02/26/2020 4:32 PM [facility] Station ID: [id number]
== END 2020-02-26 09:53 | disposition home or self-care (01) ==
LOC: DI 09:52
PROVIDERS: ATTEND Surgery
DX: R10.11 Right upper quadrant pain (principal)
CPT/HCPCS: 78226

== ENCOUNTER 2020-12-14 08:00 | Outpatient (CLI) | payer MEDICARE, BC ==
--- NOTE | 2020-12-14 11:41 | XRAY Report ---
PROCEDURE: Chest 2 View X-Ray INDICATIONS: ACUTE COUGH TECHNIQUE: 2 view(s) of the chest. COMPARISON: Chest CT 07/10/2019 FINDINGS: Surgical changes and devices: None. Lungs and pleura: No pleural effusions or pneumothorax. Lungs are hyperinflated, hyperlucent, and d emonstrate bullous changes at the apices. Mild diffuse coarsening of interstitial markings.. Mediastinum: Mediastinal contours are normal. Heart size is normal. Bones and chest wall: No suspicious bony abnormalities. Mild dextroscoliosis. Soft tissues appear un remarkable. IMPRESSION: 1. Pulmonary hyperinflation suggesting emphysema or asthma. Reviewed by: Jeannette Junior MD on 12/14/2020 11:40 AM PST Approved by: Jeannette Junior MD on 12/14/2020 11:40 AM PST Station ID: [id number]
== END 2020-12-14 23:59 | disposition home or self-care (01) ==
LOC: DI.S 08:00
PROVIDERS: ATTEND Physician Assistant Medical
DX: R05.1 Acute cough (principal); R09.81 Nasal congestion; Z20.822 Contact with and (suspected) exposure to COVID-19
CPT/HCPCS: 71046; U0004

== ENCOUNTER 2020-12-14 10:30 | Outpatient (CLI) | payer MEDICARE, BC | END 2020-12-14 10:31 | disposition home or self-care (01) | LOC: LAB.S 10:30 | PROVIDERS: ATTEND Physician Assistant Medical | DX: R09.81 Nasal congestion (principal); R05.1 Acute cough; Z20.822 Contact with and (suspected) exposure to COVID-19 ==

== ENCOUNTER 2021-04-23 08:00 | Outpatient (CLI) | payer MEDICARE, BC ==
--- NOTE | 2021-04-23 11:55 | XRAY Report ---
PROCEDURE: Femur LT INDICATIONS: THIGH PAIN TECHNIQUE: 2 views of the femur were acquired. COMPARISON: None. FINDINGS: BONES: No acute, displaced fracture or dislocation. SOFT TISSUES: Calcific densities project adjacent to the proximal, lateral femur intertrochanteric re gion, which may reflect calcific tendinopathy. Small suprapatellar joint effusion. IMPRESSION: 1.No acute osseous abnormality. Reviewed by: Nathaniel Wilburn MD on 04/23/2021 11:54 AM PDT Approved by: Nathaniel Wilburn MD on 04/23/2021 11:54 AM PDT Station ID: [id number]
== END 2021-04-23 23:59 | disposition home or self-care (01) ==
LOC: DI.WOS 08:00
PROVIDERS: ATTEND Physician Assistant
DX: M79.605 Pain in left leg (principal)

== ENCOUNTER 2021-08-30 09:43 | Outpatient (CLI) | payer MEDICARE, BC ==
--- NOTE | 2021-08-30 12:38 | DEXA Report ---
PROCEDURE: Dexa Spine and/or Hip INDICATIONS: OSTEOPOROSIS TECHNIQUE: Dual energy x-ray absorptiometry (DXA) was performed on a [employer] System. Regions measur ed are the AP Spine, femoral neck, and if needed forearm. COMPARISON: 07/07/2016. FINDINGS: Lumbar Spine: Bone Mineral Density 1.071 g/cm/cm,T score -0.9, normal. Since the previous exam there has been a significant interval decrease in bone mineral density. Left Hip: Bone Mineral Density 0.673 g/cm/cm,T score -2.7, osteoporosis. Since the previous exam there has bee n a significant interval decrease in bone mineral density. Left Femoral Neck: Bone Mineral Density 0.623 g/cm/cm, T score -3.0, osteoporosis. (T score greater or equal to -1.0: NORMAL) (T score from -1.1 to -2.4: OSTEOPENIA) (T score less than or equal to -2.5 to: OSTEOPOROSIS) Impression: Osteoporosis. There is been a significant interval decrease in bone mineral density at the left hip a nd lumbar spine since the prior exam. Patients with diagnosis of osteoporosis or osteopenia should have regular bone mineral density assess ment. For those eligible for Medicare, routine testing is allowed once every 2 years. Testing frequ ency can be increased for patients who have rapidly progressing disease or for those who are receivin g medical therapy to restore bone mass. Reviewed by: Bassam Tilley MD on 08/30/2021 12:37 PM PDT Approved by: Bassam Tilley MD on 08/30/2021 12:37 PM PDT Station ID: [id number]
== END 2021-08-30 09:44 | disposition home or self-care (01) ==
LOC: DI 09:43
PROVIDERS: ATTEND Nurse Practitioner
DX: M81.0 Age-related osteoporosis without current pathological fracture (principal)

== ENCOUNTER 2021-09-01 09:48 | Outpatient (CLI) | payer MEDICARE, BC ==
--- NOTE | 2021-09-02 09:36 | Mammography Report ---
BILATERAL DIGITAL SCREENING MAMMOGRAM 3D/2D WITH EXAGGERATED CC: 09/01/2021 CLINICAL: Routine screening. Comparison is made to exams dated: 09/18/2019 mammogram, 07/18/2017 mammogram, 07/07/2016 mammogram, and 03/20/2014 mammogram - [facility]. The tissue of both breasts is extremely dense, which lowers the sensitivity of mammography. No significant masses, calcifications, or other findings are seen in either breast. There has been no significant interval change. IMPRESSION: NEGATIVE There is no mammographic evidence of malignancy. A 1 year screening mammogram is recommended. Based on the Tyrer Cuzick model (a risk assessment model) the patients lifetime risk is 12.0% and he r 10 year risk is 8.3%. According to the ACR, ACS, and NCCN guidelines, an annual breast MRI exam dejuan ng with mammogram is recommended if the patients lifetime risk is 20% or greater. This exam was interpreted at Station ID: [id number]. NOTE: For mammograms, a report in lay terms will be sent to the patient. Approximately 15% of breast malignancies will not be visualized mammographically. In the management of a palpable breast mass, a negative mammogram must not discourage biopsy of a clinically suspicious lesion. Electronically Signed By: Taqueria gustafson/parul:09/01/2021 14:08:51 ACR BI-RADS Category 1: Negative 3341F PARENCHYMAL PATTERN: (VD) - The breast(s) demonstrate(s) extremely dense parenchyma, limiting the sen sitivity of mammography. BI-RADS CATEGORY: (1) - 1 RECOMMENDATION: (ANNUAL) - Recommend routine annual screening mammography. [id number] 1 year screening LATERALITY: (B)
== END 2021-09-01 09:49 | disposition home or self-care (01) ==
LOC: DI.S 09:48
PROVIDERS: ATTEND Nurse Practitioner
DX: Z12.31 Encounter for screening mammogram for malignant neoplasm of breast (principal)

== ENCOUNTER 2022-02-08 13:14 | Outpatient (CLI) | payer MEDICARE, BC ==
--- NOTE | 2022-02-08 12:57 | XRAY Report ---
PROCEDURE: Chest 2 View X-Ray INDICATIONS: CHEST CONGESTION TECHNIQUE: 2 views of the chest were acquired. COMPARISON: 12/14/2020 FINDINGS: The lungs are hyperinflated. No dense consolidation or pleural effusions. Heart size is normal. No acute or suspicious osseous lesion. IMPRESSION: No acute radiographic abnormality. Suspected obstructive lung disease. Reviewed by: Yohan Mac MD on 02/08/2022 12:56 PM PST Approved by: Yohan Mac MD on 02/08/2022 12:56 PM PST Station ID: [id number]
== END 2022-02-08 13:15 | disposition home or self-care (01) ==
LOC: DI.S 13:14
PROVIDERS: ATTEND Physician Assistant Medical
DX: R09.89 Other specified symptoms and signs involving the circulatory and respiratory systems (principal)

== ENCOUNTER 2022-03-22 09:30 | Outpatient (CLI) | payer MEDICARE, BC ==
--- NOTE | 2022-03-22 15:19 | Ultrasound Report ---
PROCEDURE: Aorta Screening INDICATIONS: HIST OF SMOKING TECHNIQUE: Real time scanning was performed of the aorta and iliac arteries, with image documentatio n. COMPARISON: None. FINDINGS: Aorta: Proximal aortic diameter measures 2.7 x 2.7 cm. Mid-aorta measures 1.6 x 1.6 cm. Distal aor tic diameter is 1.4 x 1.4 cm. Iliac arteries: Right common iliac artery measures 0.9 x 1.0 cm. Left common iliac artery measures 1.0 x 1.1 cm. Incidental note is made of compression of left renal vein between the SMA and aorta with increased ve locities. No thrombus IMPRESSION: Normal ultrasound of the aorta. No evidence of abdominal aortic aneurysm Reviewed by: Simón Parker MD on 03/22/2022 2:18 PM [facility] Approved by: Simón Parker MD on 03/22/2022 2:18 PM [facility] Station ID: [id number]
--- NOTE | 2022-03-22 16:43 | CT Report ---
PROCEDURE: Low Dose Lung Cancer Screen INDICATIONS: HIST OF SMOKING TECHNIQUE: Noncontrast low-dose axial images were acquired from the pulmonary apices to the posterior costophren ic angles. Multiplanar MIP reformats were then reconstructed. For radiation dose reduction, the follo wing was used: automated exposure control, adjustment of mA and/or kV according to patient size. COMPARISON: CT chest 07/10/2019 FINDINGS: Image quality: Adequate. Lungs and pleura: Multifocal patchy consolidative/ground glass opacities are present, most conspicuo us in the right upper lobe but also present within the left upper lobe and posterior right lower lobe . These are new compared to the prior chest CT. There is an additional 1.2 cm irregular right middle lobe opacity abutting the fissure (4/243) which could represent scarring, pulmonary nodule, or sequel a of infection/inflammation. No pleural effusion. Mild-moderate emphysema. Mediastinum: No pericardial effusion. Thoracic aorta and central pulmonary arteries are normal in s ize. Esophagus is normal in caliber. Coronary artery calcifications are present. Bones and chest wall: Multilevel degenerative change of the visualized spine. No axillary or supracla vicular adenopathy by size criteria. Abdomen: Prior cholecystectomy. 2 mm nonobstructing stone left inferior kidney. IMPRESSION: Lung-RADS 0 - incomplete. Findings are suggestive of an infectious/inflammatory process, such as mult ifocal pneumonia but other etiologies are not excluded. Follow-up chest CT is recommended in 1-3 [facility] hs. Reviewed by: Bassam Tilley MD on 03/22/2022 4:41 PM [facility] Approved by: Bassam Tilley MD on 03/22/2022 4:41 PM PST Station ID: [id number]
== END 2022-03-22 09:31 | disposition home or self-care (01) ==
LOC: DI 09:30
PROVIDERS: ATTEND Nurse Practitioner Acute Care
DX: Z12.2 Encounter for screening for malignant neoplasm of respiratory organs (principal); Z13.6 Encounter for screening for cardiovascular disorders; R91.8 Other nonspecific abnormal finding of lung field; Z87.891 Personal history of nicotine dependence

== ENCOUNTER 2022-06-13 08:29 | Outpatient (CLI) | payer MEDICARE, BC ==
[2022-06-13 14:54] LABS: BASOPHILS % (AUTO) 0.4 %; EOSINOPHILS # (AUTO) 0.3 10^3/uL (0.0-0.7); EOSINOPHILS % (AUTO) 3.9 %; HCT - HEMATOCRIT 47.1 % (37.0-47.0); HGB - HEMOGLOBIN 14.7 g/dL (12.0-16.0); LYMPHOCYTES % (AUTO) 29.4 %; MEAN CORPUSCULAR HEMOGLOBIN 30.2 pg (27.0-31.0); MEAN CORPUSCULAR HGB CONC 31.2 g/dL (32.0-36.0); MEAN CORPUSCULAR VOLUME 96.7 fL (81.0-99.0); MEAN PLATELET VOLUME 9.8 fL (7.9-10.8); MONOCYTES # (AUTO) 0.5 10^3/uL (0.0-1.0); MONOCYTES % (AUTO) 7.6 %; NEUTROPHILS # (AUTO) 4.1 10^3/uL (1.5-6.6); NEUTROPHILS % (AUTO) 58.6 %; PLT - PLATELET COUNT 304 10^3/uL (130-450); RED BLOOD COUNT 4.87 10^6/uL (4.20-5.40); RED CELL DISTRIBUTION WIDTH 12.8 % (12.0-15.0)
[2022-06-13 15:54] LABS: ALBUMIN 4.1 g/dL (3.2-5.5); ALBUMIN/GLOBULIN RATIO 1.3 (1.0-2.2); ALKALINE PHOSPHATASE 68 IU/L (42-121); ALT ALANINE AMINOTRANSFERASE 17 IU/L (10-60); AST ASPARTATE AMINOTRANSFERASE 24 IU/L (10-42); BILIRUBIN,TOTAL 0.6 mg/dL (0.2-1.0); BUN - BLOOD UREA NITROGEN 18 mg/dL (6-20); CARBON DIOXIDE - CO2 29 mmol/L (21-32); CHLORIDE 99 mmol/L (101-111); CHOL/HDL RATIO 2.3 (<4.4); CHOLESTEROL 225 mg/dL; CREATININE 0.8 mg/dL (0.4-1.0); GFR - MDRD 71 (>89); GLUCOSE 97 mg/dL (70-100); HDL CHOLESTEROL 99 mg/dL; LDL CHOLESTEROL,CALCULATED 104 mg/dL; LDL/HDL RATIO 1.1 (<4.4); POTASSIUM 4.5 mmol/L (3.5-5.0); SODIUM 138 mmol/L (135-145); TOTAL PROTEIN 7.2 g/dL (6.7-8.2); TRIGLYCERIDES 108 mg/dL; VLDL CHOLESTEROL 22 mg/dL
== END 2022-06-13 08:30 | disposition home or self-care (01) ==
LOC: LAB.S 08:29
PROVIDERS: ATTEND Nurse Practitioner Acute Care
DX: E78.5 Hyperlipidemia, unspecified (principal); Z79.899 Other long term (current) drug therapy
CPT/HCPCS: 36415; 80053; 80061; 83721; 85025

== ENCOUNTER 2022-06-27 16:59 | Emergency (ER) | payer MEDICARE, BC ==
[2022-06-27] MEDS ORDERED: ASPIRIN CHEW 81 MG TABLET PO STA (17:17)
[2022-06-27 17:35] LABS: BASOPHILS % (AUTO) 0.2 %; EOSINOPHILS # (AUTO) 0.1 10^3/uL (0.0-0.7); EOSINOPHILS % (AUTO) 0.9 %; HCT - HEMATOCRIT 44.9 % (37.0-47.0); HGB - HEMOGLOBIN 15.1 g/dL (12.0-16.0); LYMPHOCYTES # (AUTO) 1.4 10^3/uL (1.5-3.5); LYMPHOCYTES % (AUTO) 14.1 %; MEAN CORPUSCULAR HEMOGLOBIN 31.5 pg (27.0-31.0); MEAN CORPUSCULAR HGB CONC 33.6 g/dL (32.0-36.0); MEAN CORPUSCULAR VOLUME 93.5 fL (81.0-99.0); MEAN PLATELET VOLUME 9.3 fL (7.9-10.8); MONOCYTES # (AUTO) 0.5 10^3/uL (0.0-1.0); MONOCYTES % (AUTO) 5.2 %; NEUTROPHILS # (AUTO) 7.8 10^3/uL (1.5-6.6); NEUTROPHILS % (AUTO) 79.3 %; PLT - PLATELET COUNT 268 10^3/uL (130-450); RED CELL DISTRIBUTION WIDTH 12.4 % (12.0-15.0); WHITE BLOOD COUNT 9.8 x10^3/uL (4.8-10.8)
--- NOTE | 2022-06-27 17:36 | ED Physician Documentation ---
History of Present Illness - Stated complaint Stated Complaint: CHEST PAIN - Chief complaint Chief Complaint: Cardiac - History obtained from History obtained from: Patient, Family - History of Present Illness Timing: Today Pain level max: 2 Pain level now: 2 - Additonal information Additional information: Patient is a 72-year-old female who presents to the emergency department complaining of left-sided weakness. She states that this started at about 345 today. She states that she left-sided chest pain and feels like her left arm is heavy. She has not had similar symptoms previously. She states that this occurred after she was outside gardening with her . She took a baby aspirin prior to arrival. She states the left chest pain is like a pressure. Nothing seems to make it better or worse. She states that her left arm and leg feel heavy. Review of Systems Constitutional: denies: Fever, Chills GI: denies: Vomiting, Diarrhea Skin: denies: Rash Musculoskeletal: denies: Neck pain, Back pain Neurologic: denies: Confused, Altered mental status, Headache, Head injury, LOC PD PAST MEDICAL HISTORY - Past Medical History Cardiovascular: None Respiratory: None Neuro: None Endocrine/Autoimmune: None GI: Cholelithiasis : None HEENT: None Psych: None Musculoskeletal: Osteoarthritis Derm: None - Past Surgical History Past Surgical History: Yes General: Cholecystectomy, Colonoscopy, EGD /TRAVEL REGISTERED NURSE ICU: Hysterectomy - Present Medications Home Medications: Ambulatory Orders Medication Instructions Recorded Confirmed Ibuprofen [Advil] 400 mg PO PRN PRN 11/16/17 08/09/18 Aspirin/Acetaminophen/Caffeine 1 tab PO PRN PRN 08/09/18 08/09/18 [Excedrin Migraine Caplet] HYDROcod/ACETAM 5/325 [Kaycee 5/325] 1 tab PO Q4HR PRN #14 tablet 08/12/18 ondansetron HCL [Zofran] 4 mg PO Q6HR PRN #10 tablet 08/12/18 Albuterol Sulf [Ventolin Hfa 1 - 2 puffs INH Q4HR PRN #1 inhaler 03/15/19 Inhaler] Azithromycin 1 tab PO DAILY #4 tablet 03/15/19 Benzonatate [Tessalon Perle] 100 - 200 mg PO TID PRN #30 capsule 03/15/19 - Allergies Allergies/Adverse Reactions: Allergies Allergy/AdvReac Type Severity Reaction Status Date / Time bee venom protein (honey bee) Allergy Anaphylaxis Verified 06/27/22 17:10 - Social History Does the pt smoke?: Yes Smoking Status: Current every day smoker Does the pt drink ETOH?: No Does the pt have substance abuse?: No - Immunizations Immunizations are current?: Yes - POLST POLST Status: Full Code PD ED PE NORMAL - Vitals Vital signs reviewed: Yes - General General: Alert and oriented X 3, No acute distress, Well developed/nourished - HEENT HEENT: PERRL, Ears normal, Moist mucous membranes, Pharynx benign - Neck Neck: Supple, no meningeal sign, Thyroid normal, No JVD, No bruit - Cardiac Cardiac: RRR, Strong equal pulses - Respiratory Respiratory: No respiratory distress, Clear bilaterally - Abdomen Abdomen: Soft, Non tender, Non distended - Derm Derm: Warm and dry - Extremities Extremities: No edema, No calf tenderness / cord - Neuro Neuro: Alert and oriented X 3 - Psych Psych: Normal mood, Normal affect Results - Vitals Vitals: Vital Signs - 24 hr 06/27/22 06/27/22 06/27/22 17:07 17:40 18:18 Temperature 36 C L Heart Rate 72 74 84 Respiratory 16 16 26 H Rate Blood Pressure 138/78 H 170/99 H 172/93 H O2 Saturation 98 99 100 06/27/22 06/27/22 06/27/22 18:30 18:41 19:14 Temperature Heart Rate 77 70 75 Respiratory 16 13 16 Rate Blood Pressure 165/99 H 165/99 H 155/96 H O2 Saturation 100 99 96 06/27/22 19:23 Temperature Heart Rate 73 Respiratory 18 Rate Blood Pressure 143/92 H O2 Saturation 98 Oxygen O2 Source Room air - EKG (time done) 1708 EKG releavant findings:: EKG personally interpreted by author of this note. Relevant findings are: Rate: Rate (enter#) (72) Rhythm: NSR Sawyer: Normal Intervals: Normal VA QRS: Normal Ischemia: Normal ST segments - Labs Labs: Laboratory Tests 06/27/22 06/27/22 06/27/22 17:23 17:23 17:23 WBC 9.8 RBC 4.80 Hgb 15.1 Hct 44.9 MCV 93.5 MCH 31.5 H MCHC 33.6 RDW 12.4 Plt Count 268 MPV 9.3 Neut # (Auto) 7.8 H Lymph # (Auto) 1.4 L [place] # (Auto) 0.5 Eos # (Auto) 0.1 Baso # (Auto) 0.0 Absolute Nucleated RBC 0.00 Nucleated RBC % 0.0 Sodium 139 Potassium 4.3 Chloride 102 Carbon Dioxide 30 Anion Gap 7.0 BUN 18 Creatinine 0.7 Estimated GFR (MDRD) 82 L Glucose 109 H Calcium 9.4 Total Bilirubin 0.6 AST 22 ALT 18 Alkaline Phosphatase 69 Troponin I High Sens 3.4 Total Protein 7.0 Albumin 3.9 Globulin 3.1 Albumin/Globulin Ratio 1.3 Lipase 80 H - Rads (name of study) CT head Relevant Findings:: Final report received, See rad report CTA head Relevant Findings:: Final report received, See rad report CTA neck Relevant Findings:: Final report received, See rad report PD Medical Decision Making - ED course Complexity details: reviewed results, re-evaluated patient, considered differential, d/w patient, d/w wealth management consultant (Dr. Huizar, telestroke) ED course: There are no acute findings on CT angiogram of the head and neck. No acute findings on CT noncontrast head. Telestroke was activated, patient is a candidate for TNK. TNK was given at 1815. The patient will be transferred for further care. Discussed the case with Dr. Ortez, neuro cupola patcher at [facility], accepts in transfer. COBRA forms completed. This document was made in part using voice recognition software. While efforts are made to proofread this document, sound alike and grammatical errors may occur. Departure - Departure Disposition: 02 Transfer Acute Care Hosp Clinical Impression: Acute stroke due to ischemia Condition: Stable Discharge Date/Time: 06/27/22 20:35 NIHSS - Time Time: 17:32 - Level of Consciousness Level of consciousness: (0) Alert, Keenly responsive LOC Questions: (0) Answers both Q's correct LOC Commands: (0) Performs both correctly - Gaze Best Gaze: (0) Normal - Visual Visual: (0) No loss - Facial Palsy Facial Palsy: (2) Partial paralysis - Motor Arms (both separate) Motor Arm (right): (0) No drift Motor Arm (left): (2) Some effort against gravity - Motor Legs (both separate) Motor Leg (right): (0) No drift Motor Leg (left): (2) Some effort against gravity - Limb Ataxia Limb Ataxia: (0) Absent - Sensory Sensory: (1) Rlpt-si-ynbuzzpc loss - Best Language Best Language: (0) No aphasia - Dysarthria Dysarthria: (0) Normal - Extinction and Inattention (formally neg Extinction and inattention: (0) No abnormality - Total Score/Results Total Score/Result: 7
[2022-06-27] MEDS ORDERED: iohexoL-300 100 ML VIAL ONE (17:38)
[2022-06-27 17:46] LABS: ALBUMIN 3.9 g/dL (3.2-5.5); ALBUMIN/GLOBULIN RATIO 1.3 (1.0-2.2); BILIRUBIN,TOTAL 0.6 mg/dL (0.2-1.0); CALCIUM 9.4 mg/dL (8.5-10.3); CREATININE 0.7 mg/dL (0.4-1.0); POTASSIUM 4.3 mmol/L (3.5-5.0)
--- NOTE | 2022-06-27 17:55 | XRAY Report ---
PROCEDURE: Chest 1 View X-Ray INDICATIONS: Chest pain TECHNIQUE: One view of the chest was acquired. COMPARISON: None. FINDINGS: Surgical changes and devices: None. Lungs and pleura: No pleural effusions or pneumothorax. Lungs are clear. Mediastinum: Mediastinal contours appear normal. Heart size is normal. Bones and chest wall: No suspicious bony lesions. Overlying soft tissues appear unremarkable. IMPRESSION: No acute cardiopulmonary process. Reviewed by: Uday Sifuentes on 06/27/2022 4:54 PM AKISA Approved by: Uday Sifuentes on 06/27/2022 4:54 PM AKDT Station ID: [id number]
--- NOTE | 2022-06-27 18:04 | CT Report ---
PROCEDURE: Head W/O Stroke Protocol INDICATIONS: L sided weakness TECHNIQUE: Noncontrast 4.5 mm thick angled axial sections acquired from the foramen magnum to the vertex, with c oronal reformats. For radiation dose reduction, the following was used: automated exposure control, adjustment of mA and/or kV according to patient size. COMPARISON: None. FINDINGS: Image quality: Excellent. CSF spaces: Basal cisterns are patent. No extra-axial fluid collections. Ventricles are normal in size and shape. Brain: No midline shift. No intracranial masses or hemorrhage. Silver-white matter interface is norm al. Skull and face: Calvarium and visualized facial bones are intact, without suspicious lesions. Sinuses: Visualized sinuses and mastoids are clear. IMPRESSION: No acute intracranial pathology This study fulfills neurological imaging criteria for inclusion or exclusion of acute stroke therapie s based on available published neurological imaging guidelines. Reviewed by: Uday Sifuentes on 06/27/2022 5:03 PM SERINA Approved by: Uday Sifuentes on 06/27/2022 5:03 PM AKISA Station ID: [id number]
--- NOTE | 2022-06-27 18:07 | CT Report ---
PROCEDURE: ANGIO HEAD W/WO INDICATIONS: L sided facial droop, L sided weakness CONTRAST: 80mL Omni 300 TECHNIQUE: Precontrast 4.5 mm thick angled axial sections acquired from the foramen magnum to the vertex. Afte r the administration of intravenous contrast, 1 mm thick sections acquired through the [place] of [place] is. Postcontrast 4.5 mm thick sections then re-acquired from the foramen magnum to the vertex. 3-di mensional cibxoap-hnzxmescn-vuipjuswtx (MIP) and/or volume rendering reformats were acquired of the c entral intracranial vasculature. For radiation dose reduction, the following was used: automated ex posure control, adjustment of mA and/or kV according to patient size. COMPARISON: None FINDINGS: Image quality: Good Head angiography Anterior circulation: ICAs: Moderate calcifications of the cavernous carotids. ACAs: The right A1 is not seen. The ACAs are fed primarily from the left side. The left side is sligh tly bigger than the right, suggesting that this is chronic. MCAs: normal and symmetric AComm: no aneurysm Posterior circulation: Dominance: Left Vertebral arteries: no stenosis, occlusion, or aneurysm. The right vertebral artery terminates in PIC A. Basilar artery: unremarkable PComms: no aneurysm negative turner apprentice: normal and symmetric Postcontrast imaging without suspicious enhancing lesion. Venous sinuses appear grossly patent. IMPRESSION: No large vessel occlusion or high-grade stenosis. Moderate calcifications of the cavernous carotid. 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 Left dominant posterior circulation with the right vertebral artery ter minating in PICA. Reviewed by: Yohan Mac MD on 06/27/2022 6:06 PM PDT Approved by: Yohan Mac MD on 06/27/2022 6:06 PM PDT Station ID: [id number]
--- NOTE | 2022-06-27 18:10 | CT Report ---
PROCEDURE: ANGIO NECK W INDICATIONS: L sided facial droop, L sided weakness CONTRAST: 80mL Omni 300 TECHNIQUE: After the administration of intravenous contrast, 1.5 mm axial sections acquired from the aortic arch to the [place] of [place]. Coronal 3-D maximum intensity projection (MIP) and/or volume rendering ref ormats were then performed. For radiation dose reduction, the following was used: automated exposur e control, adjustment of mA and/or kV according to patient size. COMPARISON: None. FINDINGS: Image quality: Good Neck angiography Aortic arch and subclavian arteries: Mild calcifications. CCAs: no stenosis, occlusion, or aneurysm. ICA origins (by NASCET criteria): Mild calcifications, without hemodynamically significant narrowing (less than 50%). ICAs: no stenosis, occlusion or aneurysm. ECAs: origins are patent. Vertebral arteries: unremarkable Soft tissues: No actionable thyroid nodule identified. No pathologic lymphadenopathy by size criteria . Lung apices: Emphysema. Bones: Cervical degenerative changes. No acute or suspicious osseous finding. IMPRESSION: No high-grade stenosis or large vessel occlusion on CT angiogram of the neck. If there is high concern for infarct, consider MRI brain. Reviewed by: Yohan Mac MD on 06/27/2022 6:09 PM PDT Approved by: Yohan Mac MD on 06/27/2022 6:09 PM PDT Station ID: [id number]
[2022-06-27] MEDS ORDERED: TENECTEPLASE 50 MG/10 ML VIAL IVP STA (18:16)
[2022-06-27 19:27] VITALS: BP 143/92
[2022-06-27] MEDS ORDERED: iohexoL-300 100 ML VIAL IVP ONE (21:04)
== END 2022-06-27 20:35 | disposition short-term general hospital (02) ==
LOC: ED 16:59
DX: I63.9 Cerebral infarction, unspecified (principal); R29.707 NIHSS score 7; F17.200 Nicotine dependence, unspecified, uncomplicated
CPT/HCPCS: 36415; 37195; 70450; 70496; 70498; 71045; 80053; 83690; 84484; 85025; 93005; 99285; Q9967

== ENCOUNTER 2022-12-07 13:02 | Outpatient (CLI) | payer MEDICARE, BC ==
--- NOTE | 2022-12-08 16:04 | Mammography Report ---
BILATERAL DIGITAL SCREENING MAMMOGRAM 3D/2D WITH EXAGGERATED CC: 12/07/2022 CLINICAL: Routine screening. Comparison is made to exams dated: 09/01/2021 mammogram, 09/18/2019 mammogram, 07/18/2017 mammogram, 07/07/2016 mammogram, 03/20/2014 mammogram, and 07/17/2012 mammogram - . Both breasts are extremely dense, which lowers the sensitivity of mammography (category d />75% gland ular tissue). No significant masses, calcifications, or other findings are seen in either breast. IMPRESSION: NEGATIVE There is no mammographic evidence of malignancy. A 1 year screening mammogram is recommended. Based on the Tyrer Cuzick model (a risk assessment model) the patients lifetime risk is 11.3% and he r 10 year risk is 8.5%. According to the ACR, ACS, and NCCN guidelines, an annual breast MRI exam dejuan ng with mammogram is recommended if the patients lifetime risk is 20% or greater. This exam was interpreted at Station ID: [id number]. NOTE: For mammograms, a report in lay terms will be sent to the patient. Approximately 15% of breast malignancies will not be visualized mammographically. In the management of a palpable breast mass, a negative mammogram must not discourage biopsy of a clinically suspicious lesion. Electronically Signed By: Edna Hurtado M.D., PH.D jules/parul:12/07/2022 22:10:27 letter sent: No_Letter ACR BI-RADS Category 1: Negative 3341F PARENCHYMAL PATTERN: (VD) - The breast(s) demonstrate(s) extremely dense parenchyma, limiting the sen sitivity of mammography. BI-RADS CATEGORY: (1) - 1 Mammogram [id number] 1 year screening LATERALITY: (B)
== END 2022-12-07 13:03 | disposition home or self-care (01) ==
LOC: DI.S 13:02
PROVIDERS: ATTEND Nurse Practitioner Acute Care
DX: Z12.31 Encounter for screening mammogram for malignant neoplasm of breast (principal); R92.343 Mammographic extreme density, bilateral breasts

== ENCOUNTER 2023-02-20 08:00 | Outpatient (CLI) | payer MEDICARE, BC ==
[2023-02-20 19:48] LABS: BILIRUBIN,URINE NEGATIVE (NEGATIVE); GLUCOSE, URINE (UA) NEGATIVE (NEGATIVE); KETONES,URINE (UA) NEGATIVE (NEGATIVE); LEUKOCYTE ESTERASE, URINE NEGATIVE (NEGATIVE); NITRITE,URINE NEGATIVE (NEGATIVE); OCCULT BLOOD,URINE TRACE-INTA (NEGATIVE); PROTEIN,URINE NEGATIVE (NEGATIVE); UROBILINOGEN,URINE 0.2 (NORMAL) E.U./dL (NORMAL)
[2023-02-20 19:51] LABS: CLARITY,URINE CLEAR (CLEAR)
[2023-02-20 20:05] LABS: BACTERIA,URINE None Seen /HPF (None Seen); RBC,URINE 0-5 /HPF (0-5); SQUAMOUS EPITHELIAL CELL,UR NONE SEEN (<= Few); WBC,URINE 0-3 /HPF (0-5)
== END 2023-02-20 23:59 | disposition home or self-care (01) ==
LOC: LAB.F 08:00
PROVIDERS: ATTEND Nurse Practitioner Acute Care
DX: R35.0 Frequency of micturition (principal); Z79.899 Other long term (current) drug therapy; Z13.228 Encounter for screening for other metabolic disorders; Z13.29 Encounter for screening for other suspected endocrine disorder; Z13.0 Encounter for screening for diseases of the blood and blood-forming organs and certain disorders involving the immune mechanism
CPT/HCPCS: 36415; 80053; 80061; 81001; 82306; 83721; 84443; 85025; 87086

== ENCOUNTER 2023-02-20 08:20 | Outpatient (CLI) | payer MEDICARE, BC ==
[2023-02-20 14:11] LABS: BASOPHILS % (AUTO) 0.4 %; EOSINOPHILS # (AUTO) 0.4 10^3/uL (0.0-0.7); EOSINOPHILS % (AUTO) 5.1 %; HCT - HEMATOCRIT 46.8 % (37.0-47.0); HGB - HEMOGLOBIN 14.7 g/dL (12.0-16.0); LYMPHOCYTES # (AUTO) 1.9 10^3/uL (1.5-3.5); LYMPHOCYTES % (AUTO) 23.2 %; MEAN CORPUSCULAR HEMOGLOBIN 30.8 pg (27.0-31.0); MEAN CORPUSCULAR HGB CONC 31.4 g/dL (32.0-36.0); MEAN CORPUSCULAR VOLUME 98.1 fL (81.0-99.0); MONOCYTES # (AUTO) 0.8 10^3/uL (0.0-1.0); MONOCYTES % (AUTO) 9.3 %; NEUTROPHILS % (AUTO) 61.8 %; PLT - PLATELET COUNT 303 10^3/uL (130-450); RED BLOOD COUNT 4.77 10^6/uL (4.20-5.40); WHITE BLOOD COUNT 8.1 x10^3/uL (4.8-10.8)
[2023-02-20 14:40] LABS: ALBUMIN 4.3 g/dL (3.2-5.5); ALBUMIN/GLOBULIN RATIO 1.7 (1.0-2.2); ALKALINE PHOSPHATASE 71 IU/L (42-121); ALT ALANINE AMINOTRANSFERASE 17 IU/L (10-60); AST ASPARTATE AMINOTRANSFERASE 23 IU/L (10-42); BILIRUBIN,TOTAL 0.6 mg/dL (0.2-1.0); BUN - BLOOD UREA NITROGEN 16 mg/dL (6-20); CALCIUM 9.7 mg/dL (8.5-10.3); CARBON DIOXIDE - CO2 33 mmol/L (21-32); CHLORIDE 101 mmol/L (101-111); CHOL/HDL RATIO 1.6 (<4.4); CHOLESTEROL 175 mg/dL; CREATININE 0.7 mg/dL (0.6-1.3); GFR - MDRD 82 (>89); GLUCOSE 85 mg/dL (74-104); HDL CHOLESTEROL 109 mg/dL; LDL CHOLESTEROL,CALCULATED 54 mg/dL; LDL/HDL RATIO 0.5 (<4.4); POTASSIUM 4.6 mmol/L (3.5-4.5); SODIUM 140 mmol/L (135-145); TOTAL PROTEIN 6.8 g/dL (6.4-8.9); TRIGLYCERIDES 62 mg/dL (48-352); VLDL CHOLESTEROL 12 mg/dL
[2023-02-20 14:52] LABS: THYROID STIMULATING HORMONE 1.86 uIU/mL (0.34-5.60)
== END 2023-02-20 08:21 | disposition home or self-care (01) ==
LOC: LAB.S 08:20
PROVIDERS: ATTEND Nurse Practitioner Acute Care
DX: Z13.228 Encounter for screening for other metabolic disorders (principal); Z13.29 Encounter for screening for other suspected endocrine disorder; Z13.0 Encounter for screening for diseases of the blood and blood-forming organs and certain disorders involving the immune mechanism; Z79.899 Other long term (current) drug therapy
CPT/HCPCS: 36415; 80053; 80061; 82306; 83721; 84443; 85025

== ENCOUNTER 2023-04-05 10:56 | Outpatient (CLI) | payer MEDICARE, BC ==
[2023-04-05] MEDS: ALBUTEROL 1 PUFF INH STA (12:34)
== END 2023-04-05 10:57 | disposition home or self-care (01) ==
LOC: RT 10:56
PROVIDERS: ATTEND Nurse Practitioner Acute Care
DX: J43.9 Emphysema, unspecified (principal)
CPT/HCPCS: 94060; 94729

== ENCOUNTER 2023-04-25 08:00 | Outpatient (CLI) | payer MEDICARE, BC | END 2023-04-25 08:01 | disposition home or self-care (01) | LOC: LAB.S 08:00 | PROVIDERS: ATTEND Registered Nurse | DX: U07.1 COVID-19 (principal) ==

== ENCOUNTER 2023-04-25 08:00 | Outpatient (CLI) | payer MEDICARE, BC ==
--- NOTE | 2023-04-25 16:29 | XRAY Report ---
PROCEDURE: Chest 2V INDICATIONS: ACUTE COUGH TECHNIQUE: 2 views of the chest were acquired. COMPARISON: Chest radiograph on June 27, 2022. FINDINGS: Surgical changes and devices: None. Lungs and pleura: No pleural effusions or pneumothorax. Hyperexpansion of the lungs with flattening of the diaphragm. Bilateral diffuse interstitial prominence. No focal pulmonary consolidation. Mediastinum: Mediastinal contours appear normal. Heart size is normal. Bones and chest wall: No suspicious bony lesions. Overlying soft tissues appear unremarkable. S-s haped curvature of the spine with slight dextroconvex curvature in the midthoracic spine and levoconv ex curvature with apex at L2-L3. IMPRESSION: 1.Bilateral diffuse interstitial prominence may reflect early pulmonary edema versus imaging techniqu e. No focal pulmonary consolidation. 2.Hyperexpansion of the lungs with flattening of the diaphragm suggestive of obstructive pulmonary di sease. Reviewed by: Jamia Allen MD on 04/25/2023 4:28 PM PDT Approved by: Jamia Allen MD on 04/25/2023 4:28 PM PDT Station ID: [id number]
== END 2023-04-25 23:59 | disposition home or self-care (01) ==
LOC: DI.S 08:00
PROVIDERS: ATTEND Registered Nurse
DX: J34.89 Other specified disorders of nose and nasal sinuses (principal); R05.1 Acute cough; R52 Pain, unspecified

== ENCOUNTER 2023-05-12 13:05 | Outpatient (CLI) | payer MEDICARE, BC ==
--- NOTE | 2023-05-12 14:37 | CT Report ---
PROCEDURE: Lung Cancer Screen INDICATIONS: HIST OF SMOKING TECHNIQUE: A CT scan of the chest was performed. Intravenous contrast media was not administered. Images were re corded and evaluated at appropriate window settings. Reformats: axial MIP of the chest, coronal and s agittal. For radiation dose reduction, the following was used: automated exposure control, adjustment of mA and/or kV according to patient size. COMPARISON: CT 03/22/2022. Radiograph 06/27/2022. FINDINGS: Image quality: Excellent. Prior cancer history: Unsure. Lungs and pleura: No pleural effusions. Mild centrilobular emphysema. No pneumothorax. Multiple hieu d and groundglass nodules, as follows: -2 mm solid nodule, left lower lobe, stable from prior (series 4, image 69). - 5 mm groundglass nodule, right upper lobe, stable from prior (series 4, image 24). -3 mm ground glass nodule, right upper lobe, stable from prior (series 4, image 24). -4 mm groundglass nodule, right upper lobe, stable from prior (series 4, image 22). Mediastinum: Heart size is normal. No pericardial effusion. No large vessel abnormality. No mediastin al adenopathy by size criteria. One vessel coronary artery calcifications. Chest wall and lower neck: Thyroid is unremarkable. No axillary or supraclavicular adenopathy by size . Bones: No aggressive osseous abnormality. Severe degenerative disc disease at L2-3 and L3-4. Upper Abdomen: Cholecystectomy clips. IMPRESSION: Lung RAD: 2 - Benign. Recommendation: Continue annual screening in 12 Months with LDCT Non-Lung Significant Findings: None. Reviewed by: Uday Sifuentes MD on 05/12/2023 2:35 PM PDT Approved by: Uday Sifuentes MD on 05/12/2023 2:35 PM PDT Station ID: [id number]
== END 2023-05-12 13:06 | disposition home or self-care (01) ==
LOC: DI 13:05
PROVIDERS: ATTEND Nurse Practitioner Acute Care
DX: Z12.2 Encounter for screening for malignant neoplasm of respiratory organs (principal); Z87.891 Personal history of nicotine dependence

== ENCOUNTER 2023-08-31 13:37 | Outpatient (CLI) | payer MEDICARE, BC ==
--- NOTE | 2023-08-31 15:00 | DEXA Report ---
PROCEDURE: Dexa Spine and/or Hip INDICATIONS: POST MENOPAUSAL TECHNIQUE: Dual energy x-ray absorptiometry (DXA) was performed on a [employer] System. Regions measur ed are the AP Spine, femoral neck, and if needed forearm. COMPARISON: 07/07/2016, 08/30/2021 FINDINGS: Lumbar Spine: Bone Mineral Density: 1.108 g/cm/cm,T score: -0.6. Since the most recent prior study, there has been a statistically significant increase in bone mineral density by 3.5 percent. Left Femoral Neck: Bone Mineral Density: 0.619 g/cm/cm, T score: -3. Left Hip: Bone Mineral Density: 0.70 g/cm/cm,T score: -2.4. Since the most recent prior study, there has been a statistically significant increase in bone mineral density by 4 percent. (T score greater or equal to -1.0: NORMAL) (T score from -1.1 to -2.4: OSTEOPENIA) (T score less than or equal to -2.5 to: OSTEOPOROSIS) Impression: By WHO criteria, this patient has osteoporosis. Interval statistical increase in bone mineral density of the lumbar spine. Interval statistical incre ase in bone mineral density of the hip. Patients with diagnosis of osteoporosis or osteopenia should have regular bone mineral density assess ment. For those eligible for Medicare, routine testing is allowed once every 2 years. Testing frequ ency can be increased for patients who have rapidly progressing disease or for those who are receivin g medical therapy to restore bone mass. Reviewed by: Uday Sifuentes MD on 08/31/2023 2:59 PM PDT Approved by: Uday Sifuentes MD on 08/31/2023 2:59 PM PDT Station ID: [id number]
== END 2023-08-31 13:38 | disposition home or self-care (01) ==
LOC: DI 13:37
PROVIDERS: ATTEND Nurse Practitioner Acute Care
DX: M81.0 Age-related osteoporosis without current pathological fracture (principal); Z78.0 Asymptomatic menopausal state

== ENCOUNTER 2023-09-04 08:00 | Outpatient (CLI) | payer MEDICARE, BC | END 2023-09-04 23:59 | disposition home or self-care (01) | LOC: LAB.F 08:00 | PROVIDERS: ATTEND Nurse Practitioner Acute Care | DX: R31.21 Asymptomatic microscopic hematuria (principal) | CPT/HCPCS: 81002 ==